=== PATIENT | male | born 1955 | race Caucasian/White ===

== ENCOUNTER 2023-04-17 20:28 | Inpatient (IN) | payer MEDICARE, SELFPAY ==
[2023-04-17] VITALS (15 sets, daily range): BP systolic 125–155; BP diastolic 86–99; PULSE 39–49; RESP 10–23; TEMP 37.1; O2SAT 94–97; BMI 19.6
--- NOTE | 2023-04-17 20:36 | XRR_ITS ---
PROCEDURE INFORMATION: Exam: XR Chest Exam date and time: 04/17/2023 9:15 PM Age: 67 years old Clinical indication: Other: AMS TECHNIQUE: Imaging protocol: Radiologic exam of the chest. Views: 1 view. COMPARISON: No relevant prior studies available. FINDINGS: Lungs: Unremarkable. No consolidation. Pleural spaces: Unremarkable. No pleural effusion. No pneumothorax. Heart/Mediastinum: The heart size is mildly enlarged. Vasculature: The aorta is markedly tortuous possibly aneurysmal dilated. Bones/joints: Unremarkable. XR/XR chest 1V portable [id number] IMPRESSION: The aorta is markedly tortuous and likely aneurysmal dilated. Recommend CTA chest aorta protocol for further assessment.
--- NOTE | 2023-04-17 20:36 | ECG_ITS ---
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 Measurements Intervals [place] Rate: 44 P: 40 NE: 192 QRS: -11 QRSD: 118 T: 119 QT: 496 QTc: 428 Interpretive Statements SINUS BRADYCARDIA MODERATE INTRAVENTRICULAR CONDUCTION DELAY [110+ ms QRS DURATION] NONSPECIFIC T-WAVE ABNORMALITY INTERPRETATION BASED ON A DEFAULT AGE OF 40 YEARS No previous ECG available for comparison Electronically Signed On 04-18-2023 15:47:51 CDT by Sathya Diaz M.D. [id number]
--- NOTE | 2023-04-17 20:43 | CTR_ITS ---
PROCEDURE INFORMATION: Exam: CT Head Without Contrast Exam date and time: 04/17/2023 9:23 PM Age: 67 years old Clinical indication: Altered mental status/memory loss; Patient HX: Arrivial via EMS for severe lethargy. Bradycardic on monitor. Unbale to obtain further history. ; Additional info: AMS TECHNIQUE: Imaging protocol: Computed tomography of the head without contrast. Radiation optimization: All CT scans at this facility use at least one of these dose optimization techniques: automated exposure control; mA and/or kV adjustment per patient size (includes targeted exams where dose is matched to clinical indication); or iterative reconstruction. REPORTING DATA: Count of CT and Cardiac NM exams in prior 12 months: This patient has received 0 known CTs and 0 known cardiac nuclear medicine studies in the 12 months prior to the current study. COMPARISON: No relevant prior studies available. RADIATION DOSE METRICS: Total DLP (mGy-cm): 1081.98 FINDINGS: Brain: No acute infarct. No hemorrhage. Involutional changes of the brain, commensurate with age. No mass effect. Chronic large region of encephalomalacia is seen in the left occipital lobe within the REGISTERED NURSING PROFESSOR territory. 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 Cerebral ventricles: No ventriculomegaly. Paranasal sinuses: No significant inflammation. No fluid levels. Mastoid air cells: Visualized mastoid air cells are well aerated. Bones/joints: Unremarkable. No acute fracture. Soft tissues: Unremarkable. CT/CT head wo con* [id number] IMPRESSION: No acute intracranial abnormality.
[2023-04-17 20:44] LABS: Glucose Point of Care 103 mg/dL (70-110)
--- NOTE | 2023-04-17 20:44 | ED_ITS ---
HPI - Syncope General: Chief Complaint: Syncope Stated Complaint: Unresponsive Time Seen by Provider: 04/17/23 20:35 Limitations: altered mental status History of Present Illness: Patient presents to the ER with unresponsiveness and altered mental status. Patient was placed down for a nap approximately at 1500. His family tried to wake patient approximately 2000. And was under his able to wake patient patient was unresponsive at this time. Patient's family said his vital signs was normal except his heart rate was in the 40s. Patient does have a history of severe dementia and is progressively rapidly went downhill over the last month. Patient just recently moved here from [place] 2 days ago to be here with his family. His and daughter in the room and are the primary historians. Patient is nonverbal and will not follow commands at this time. Review of Systems General: Reports: ROS unobtainable due to mental status Physical Exam Const: COMMON NORMALS: no acute distress, average body habitus, healthy appearing and well nourished EXAM LIMITATIONS: behavioral limitations HENMT: COMMON NORMALS: normocephalic, atraumatic, external ears normal, Normal external nose present and moist oral mucous membranes HEAD & SCALP: normocephalic and atraumatic NOSE: Normal external nose present EXTERNAL EAR: Yes external ears normal Eye: COMMON NORMALS: Equal, round and reactive pupils present, EOMs intact bilaterally, conjunctivae normal and no scleral icterus CONJUNCTIVA: Yes conjunctivae normal PUPIL: Yes Equal, round and reactive pupils present Neck/C-Spine: COMMON NORMALS: no JVD Resp: COMMON NORMALS: normal respiratory effort, No retractions, No use of accessory muscles and clear to auscultation bilaterally AUSCULTATION: clear to auscultation bilaterally Cardio: COMMON NORMALS: no JVD, S1 normal heart sound present, S2 normal heart sound present, No gallops present (Cardio), No clicks present (Cardio) and No murmurs present (Cardio) RATE: bradycardic HEART SOUNDS: S1 normal heart sound present and S2 normal heart sound present GI: COMMON NORMALS: Normal to inspection, nondistended, normoactive bowel sounds present, Soft to palpation, non-tender, No hepatosplenomegaly present and no masses PALPATION: Yes Soft to palpation and Yes No hepatosplenomegaly present : COMMON NORMALS: Yes no CVA tenderness BLADDER/KIDNEY EXAM: Yes no CVA tenderness Back/Pelvis: COMMON NORMALS: no CVA tenderness Extremity: NARRATIVE EXTREMITY EXAM: Negative edema to bilateral lower extremities Course Vital Signs: Vital signs: Vital Signs Temperature 98.7 F 04/17/23 20:29 Pulse Rate 43 L 04/17/23 22:00 Respiratory Rate 16 04/17/23 22:00 Blood Pressure 135/92 04/17/23 22:00 Pulse Oximetry 95 04/17/23 22:00 Oxygen Delivery Me thod Room Air 04/17/23 20:29 MDM - Syncope Medical Decision Making Presents to the ER with complaints of unresponsiveness and altered mental status. Patient would not respond to family after he woke up from a nap today. Patient arrived at the ER he was only responsive to stiff sternal rub. Lab work was obtained chest x-ray showed a markedly tortuous likely aneurysmal dilated aorta. CTA was obtained preliminary review was negative for dissection. Lab work showed patient was probably a little dehydrated with a sodium of 149, but hypokalemic with a potassium of 2.9, BUN/creatinine of 11 and 0.6. And magnesium 1.8. Patient was given 20 mEq of potassium as of K riders and 40 mEq potassium p.o. and 2 g magnesium IV. Patient was discussed with Dr. Nevarez who agreed for further evaluation and treatment as admission we will wait to to get the official report of the CTA for the tortuous aorta. Differential Diagnosis Unlikely syncope due to orthostatic hypotension, vasovagal syncope, complete atrioventricular block, subarachnoid hemorrhage, pulmonary embolism or dehydration Medical Records I reviewed the patient's medical records. Lab Data I reviewed the patient's lab results. 04/17/23 20:34 04/17/23 20:34 Radiology Impressions Chest X-Ray 04/17/23 20:36 IMPRESSION: The aorta is markedly tortuous and likely aneurysmal dilated. Recommend CTA chest aorta protocol for further assessment. ADDENDUM: 04/17/233 THIS REPORT CONTAINS FINDINGS THAT MAY BE CRITICAL TO PATIENT CARE. The findings were verbally communicated via telephone conference with Mayco Hawk at 10:05 PM CDT on 04/17/2023. The findings were acknowledged and understood. Head CT 04/17/23 20:43 IMPRESSION: No acute intracranial abnormality. Laboratory Results WBC 5.9 10^3/uL (4.0-10.0) 04/17/23 20:34 RBC 3.94 10^6/uL (4.1-5.3) L 04/17/23 20:34 Hgb 12.1 g/dL (11.7-16.6) 04/17/23 20:34 Hct 38.2 % (42.0-52.0) L 04/17/23 20:34 MCV 97.0 fl (80-94) H 04/17/23 20: MCH 30.7 pg (28.0-34.0) 04/17/23 20: MCHC 31.7 g/dL (30.0-36.0) 04/17/23 20: RDW 16.7 % (12.1-15.1) H 04/17/23 20:34 Plt Count 152 10^3/cmm (130-400) 04/17/23 20:34 MPV 9.8 fL (7.4-10.4) 04/17/23:34 Neut % (Auto) 75.3 % 04/17/23:34 Lymph % (Auto) 15.8 % 04/17/23 20:34 [place]arrow % (Auto) 8.0 % 04/17/23 20:34 Eos % (Auto) 0.2 % 04/17/23 20:34 Baso % (Auto) 0.2 % 04/17/23: Neut # (Auto) 4.44 10^3/uL (1.8-7.7) 04/17/23:34 Lymph # (Auto) 0.9 10^3/uL (0.8-4.8) 04/17/23:34 [place] # (Auto) 0.5 10^3/uL (0.2-0.9) 04/17/23 20:34 Eos # (Auto) 0.0 10^3/uL (0.0-0.8) 04/17/23:34 Baso # (Auto) 0.0 10^3/uL (0.0-0.1) 04/17/23:34 Nucleated RBC % (auto) 0 % 04/17/23: Nucleated RBCs # 0.0 /100WBC 04/17/23 20: Sodium 149 mmol/L (136-145) H 04/17/23 20:34 Potassium 2.9 mmol/L (3.5-5.1) L 04/17/23 20:34 Chloride 110 mmol/L (98-107) H 04/17/23 20:34 Carbon Dioxide 32 mmol/L (22-29) H 04/17/23 20:34 Anion Gap 9.9 (5-19) 04/17/23 20:34 BUN 11 mg/dL (8-23) 04/17/23 20:34 Creatinine 0.6 mg/dL (0.7-1.2) L 04/17/23 20:34 GFR Calculation 134.4 mL/min (90-130) H 04/17/23 20:34 Glucose 92 mg/dL (65-115) 04/17/23 20:34 POC Glucose 103 mg/dL (70-110) 04/17/23 20:39 Calculated Osmolality 307 mOsm/kg (285-295) H 04/17/23 20:34 Calcium 8.5 mg/dL (8.5-10.5) 04/17/23 20:34 Magnesium 1.8 mg/dL (1.7-2.3) 04/17/23 20:34 Total Bilirubin 0.3 mg/dL (0.15-1.2) 04/17/23 20:34 AST 33 U/L (0-40) 04/17/23 20:34 ALT 51 U/L (0-41) H 04/17/23 20:34 Alkaline Phosphatase 163 U/L (40-130) H 04/17/23 20:34 Total Protein 5.6 g/dL (6.6-8.7) L 04/17/23 20:34 Albumin 2.6 g/dL (3.5-5.2) L 04/17/23 20:34 Globulin 3.0 g/dL (1.3-4.6) 04/17/23 20:34 EKG Data EKG 1: I personally reviewed and interpreted this EKG as follows: EKG interpretation date: 04/17/23 EKG interpretation time: 20:37 Prior EKG tracings: not available for review Interpretation: EKG shows ventricular rate 44 bpm, ND interval 192, QRS duration 118, QTc 448, s inus bradycardia with moderate intraventricular conduction delay, nonspecific T wave abnormalities. 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
[2023-04-17 21:00] LABS: Basophils % 0.2 %; Eosinophils % 0.2 %; Hematocrit 38.2 % (42.0-52.0); Hemoglobin 12.1 g/dL (11.7-16.6); Lymphocytes # 0.9 10^3/uL (0.8-4.8); Lymphocytes % 15.8 %; Mean Corpuscular HGB Conc 31.7 g/dL (30.0-36.0); Mean Corpuscular Hemoglobin 30.7 pg (28.0-34.0); Mean Platelet Volume 9.8 fL (7.4-10.4); Monocytes # 0.5 10^3/uL (0.2-0.9); Neutrophils # 4.44 10^3/uL (1.8-7.7); Neutrophils % 75.3 %; Nucleated Red Blood Cells % 0 %; Platelet Count 152 10^3/cmm (130-400); Red Blood Count 3.94 10^6/uL (4.1-5.3); Red Cell Distribution Width 16.7 % (12.1-15.1); White Blood Count 5.9 10^3/uL (4.0-10.0)
[2023-04-17 21:10] LABS: Alanine Aminotransferase 51 U/L (0-41); Albumin Level 2.6 g/dL (3.5-5.2); Alkaline Phosphatase 163 U/L (40-130); Aspartate Amino Transferase 33 U/L (0-40); Blood Urea Nitrogen 11 mg/dL (8-23); Calcium 8.5 mg/dL (8.5-10.5); Carbon Dioxide 32 mmol/L (22-29); Chloride 110 mmol/L (98-107); Glomerular Filtration Rate 134.4 mL/min (90-130); Glucose 92 mg/dL (65-115); Magnesium 1.8 mg/dL (1.7-2.3); Osmolality Calculated 307 mOsm/kg (285-295); Sodium 149 mmol/L (136-145); Total Bilirubin 0.3 mg/dL (0.15-1.2); Total Protein 5.6 g/dL (6.6-8.7)
[2023-04-17 21:16] LABS: Anion Gap 9.9 (5-19); Potassium 2.9 mmol/L (3.5-5.1)
[2023-04-17] MEDS: lidocaine 1% 5 ML in potassium chloride premix 100 ML 52.5 ML IV (21:46)
--- NOTE | 2023-04-17 22:07 | CTR_ITS ---
PROCEDURE INFORMATION: Exam: CTA Chest With Contrast Exam date and time: 04/17/2023 10:34 PM Age: 67 years old Clinical indication: Other: Bradycardia. Tortuous aorta. Patient HX: Persistent bradycardia with tortuous aorta noted on cxr. ; Additional info: Abnormal aorta on cxr TECHNIQUE: Imaging protocol: Computed tomographic angiography of the chest with contrast. Exam focused on the arteries. 3D rendering (Not supervised by radiologist): MIP and/or 3D reconstructed images were created by the technologist. Radiation optimization: All CT scans at this facility use at least one of these dose optimization techniques: automated exposure control; mA and/or kV adjustment per patient size (includes targeted exams where dose is matched to clinical indication); or iterative reconstruction. Contrast material: OMNI 350; Contrast volume: 100 ml; Contrast route: INTRAVENOUS (IV); REPORTING DATA: Count of CT and Cardiac NM exams in prior 12 months: This patient has received 0 known CTs and 0 known cardiac nuclear medicine studies in the 12 months prior to the current study. COMPARISON: CR (CHEST, ) 04/17/2023 9:15 PM RADIATION DOSE METRICS: Total DLP (mGy-cm): 575.3 FINDINGS: Pulmonary arteries: No central pulmonary embolus is visible. Peripheral assessment is limited. Aorta: Ascending aortic aneurysm measures 4.3 cm at the level of the right main pulmonary artery. There is ectasia of the descending aorta at the same level to 2.9 cm. No evidence of dissection. Thyroid: Bilateral subcentimeter thyroid nodules. Lungs: Right lower lobe infiltrate greatest in the superior segment. Minimal patchy infiltrate in the peripheral right upper lobe is also present. The left lung is clear. Pleural spaces: Trace right pleural effusion. Heart: Mild cardiomegaly. Postsurgical changes in the atrial septum likely related to ASD closure. Lymph nodes: Unremarkable. No enlarged lymph nodes. Liver: Pneumobilia in the left hepatic lobe post cholecystectomy. Bones/joints: Subacute appearing posteromedial right-sided rib fractures superiorly. Soft tissues: Unremarkable. CT/CT angio chest [id number] IMPRESSION: 1. Ascending aortic aneurysm measures 4.3 cm. No dissection. 2. Right lower lobe greater than right upper lobe infiltrates suspicious for pneumonia. Trace right pleural effusion. COMMENTS: Consistent with the [place] [employer]'s Incidental Findings Committee white paper (J Am Opal Radiol 2015): In patients aged 35 years and older with an incidental thyroid nodule equal to or greater than 1.[address], MRI or extrathyroidal US, further evaluation with dedicated thyroid US is recommended for patients with normal life expectancy and without comorbidities. For smaller nodules without suspicious features, no further evaluation or follow up is recommended.
[2023-04-17] MEDS: iohexol 350 mg/mL 500 mL Btl (per mL) IV (22:44)
[2023-04-17] MEDS: magnesium sulfate premix 2 GM/50 ML PIGGYBACK IV (23:29)
[2023-04-18] VITALS (67 sets, daily range): BP systolic 110–172; BP diastolic 72–113; PULSE 32–76; RESP 8–37; TEMP 36.8–36.9; O2SAT 87–100
--- NOTE | 2023-04-18 | PC.NURSE ---
Patient was given room on medsurg unit. Upon calling report, receiving nurse questioned if this was the appropriate floor. Hospitalist called to reassess.
[2023-04-18] MEDS: piperacillin-tazobactam 3.375 GM in sodium chloride 0.9% (plus) 50 ML IV (00:28)
--- NOTE | 2023-04-18 01:48 | PC.NURSE ---
Report from JOÃO Bee. Family states pt is in a brief and needs brief changed. Pt is incontinent of urine. Family and pt requested catheter for comfort at this point. Dr. Mishra notified and orders received. Clean linens provided. Pt placed in gown.
--- NOTE | 2023-04-18 01:58 | P.HP_ITS ---
Providers/Chief Complaint Admitting Physician: Paul Nevarez DO Primary Care Provider: None just moved to town 3 days ago to live with family Chief Complaint: Unresponsive History of Present Illness Daquan Villa is a 67 year old male who cannot give much history. The mark santana and grandson answer most of the questions. Patient and his are just moving to town to live with family because she is having trouble taking care of him. She states today they could not wake him after a 5-hour nap. This is new and unusual. She states that he has been very weak and unable to walk. While the history is somewhat difficult to obtain the patient required a Whipple procedure 11 years ago and states he has gone downhill from there. However, she also reports that he was running a year and a half ago. She also states that she has not had a meaningful conversation with him in approximately 3 months. He does not initiate conversations and has responds minimally to them verbally. The states that he has been diagnosed with dementia but she is unsure which kind. They also report he has had a low heart rate for many years and usually runs in the 40s. She says he has just been checked out by a attendant coin operated laundry because of his lower extremity edema and was told his heart is strong. Patient denies any chest pain shortness of breath other pain nausea or vomiting to me he denied headache and dizziness. Review of Systems Const: Denies: fever(s) or chills Eyes: Denies: change in vision ENMT: Denies: throat pain or nasal congestion Card: Denies: chest pain or palpitations Resp: Denies: dyspnea or productive cough GI: Denies: abdominal pain, nausea, vomiting or change in stool character : Denies: difficulty urinating or dysuria Musc: Denies: back pain or extremity pain Skin/Breast: Denies: rash or lesions Neuro: Denies: headache(s) or dizziness Psych: Denies: anxiety or depression Leobardo/Lymph: Denies: easy bruising or easy bleeding PFSH Acute PFSH: Medical History Asymptomatic bradycardia Bedridden Dementia Leg swelling Surgical History History of Whipple procedure Social History Smoking and tobacco status: never smoked Second hand smoke exposure: No Alcohol intake: never Substance/Drug Use: never Household members: spouse and children Housing: House Marital status: Vitals/I&O/Wt Last Vital Signs Temp 98.7 F 04/17/23 20:29 Pulse 33 L 04/18/23 01:15 Resp 16 04/18/23 01:15 BP 129/83 04/18/23 01:15 Pulse Ox 87 L 04/18/23 01:15 O2 Del Method Room Air 04/17/23 20:29 04/17/23 04/17/23 04/18/23 14:59 22:59 06:59 Intake Total Balance Weight last 48 hrs Weight 60.328 kg Physical Exam Narrative: Patient is lying in bed with and grandson at the bedside. He does not open his eyes for interaction with me initially upon exam he awakens. Patient is a elderly appearing male in no acute distress except looking chronically ill. Neurologic patient is alert and oriented to person place time and situation he is lethargic. Nonfocal and exam HEENT head is atraumatic normocephalic pupils equal round and reactive to light and accommodation extraocular muscles are intact there is no scleral mucous man membranes are somewhat dry neck is supple no JVD carotid bruits or lymphadenopathy heart is bradycardic normal S1-S2 without murmurs clicks gallops or rubs distant heart sounds though Lungs clear to auscultation without wheezes rales or rhonchi Abdomen soft nontender nondistended positive bowel sounds no hepatosplenomegaly Extremities +3 pitting edema residential up bilateral legs worse in the feet. Feet are cool to touch Skin no lesions or rashes Lymphatic: No lymphadenopathy noted in neck axilla or inguinal area Urinary Catheter Management: Hickman: Cath Placed During This Visit: yes Urinary Catheter Date of Insertion: 04/18/23 Urinary Catheter Time of Insertion: 01:57 Data 04/17/23 20:34 04/17/23 20:34 Micro: Microbiology 04/17/23 23:34 Blood Culture - Preliminary Blood SPECIMEN COLLECTED 04/17/23 23:30 Blood Culture - Preliminary Blood SPECIMEN COLLECTED CTA Chest: Radiologist's impression: IMPRESSION: 1. ? Ascending aortic aneurysm measures 4.3 cm. No dissection. 2. ? Right lower lobe greater than right upper lobe infiltrates suspicious for pneumonia. Trace right pleural effusion. CT Head: Radiologist's impression: FINDINGS: Brain: No acute infarct. No hemorrhage. Involutional changes of the brain, commensurate with age. No mass effect. Chronic large region of encephalomalacia is seen in the left occipital lobe within the RN ADVICE territory. 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 Cerebral ventricles: No ventriculomegaly. Paranasal sinuses: No significant inflammation. No fluid levels. Mastoid air cells: Visualized mastoid air cells are well aerated. Bones/joints: Unremarkable. No acute fracture. Soft tissues: Unremarkable. CT/CT head wo con* [id number] IMPRESSION: No acute intracranial abnormality. CXR: Radiologist's impression: FINDINGS: Lungs: Unremarkable. No consolidation. Pleural spaces: Unremarkable. No pleural effusion. No pneumothorax. Heart/Mediastinum: The heart size is mildly enlarged. Vasculature: The aorta is markedly tortuous possibly aneurysmal dilated. Bones/joints: Unremarkable. XR/XR chest 1V portable [id number] IMPRESSION: The aorta is markedly tortuous and likely aneurysmal dilated. Recommend CTA chest aorta protocol for further assessment. A&P Assessment and plan (1) Dementia: suspect vascular dementia Qualifiers: Dementia behavioral or psychological symptom: unspecified whether behavioral, psychotic, or mood disturbance or anxiety Dementia severity: severe Dementia type: unspecified type Qualified Code(s): F03.C0 - Unspecified dementia, severe, without behavioral disturbance, psychotic disturbance, mood disturbance, and anxiety (2) Bedridden: (3) History of Whipple procedure: (4) Leg swelling: Likely related to malnutrition and hypoalbuminemia (5) Asymptomatic bradycardia: Will place in CSU precautionary. (6) Pneumonia: Antibiotics respiratory eval and treat O2 as needed (7) Acute alteration in mental status: Likely due to infection and hypokalemia (8) Acute hypokalemia: Replace with 80 mEq total today and recheck Plan Unfortunately this is very overwhelming for patient and the family after having just moved here 3 days ago. We had a extensive conversation about CODE STATUS. I repeated myself a few times regarding quality of life. After they had a few moments to discuss and even discussed with the patient the decision was made for no tubes. Thus a DNR DNI or out natural was entered in orders. They n ever said they did not want transvenous pacer or permanent pacer at this time. Thus he will be placed in CSU Attestations Medical Necessity Statement*: Patient is acutely ill with pneumonia and altered mental status. Patient will need extensive work-up and treatment in a hospital setting. His care is expected to cross 2 midnight Coding Level of Care Code [facility] Dementia F03.C0 Dementia behavioral or psychological symptom: unspecified whether behavioral, psychotic, or mood disturbance or anxiety Dementia severity: severe Dementia type: unspecified type Bedridden Z74.01 History of Whipple procedure Z90.410; Z90.49 Leg swelling M79.89 Asymptomatic bradycardia R00.1 Pneumonia J18.9 Acute alteration in mental status R41.82 Acute hypokalemia E87.6
[2023-04-18 02:42] LABS: Glucose Urine UA Norm (Normal); Ketones Urine 1+ (Negative); Protein Urine Trace (Negative); Specific Gravity, Urine 1.015 (1.005-1.030); Urine Appearance Clear (CLEAR); Urine Color Yellow (Yellow); pH Urine 5 (5-7)
[2023-04-18 02:43] LABS: Add Urine Microscopic? YES; Bilirubin Urine Neg (Negative); Blood Urine Neg (Negative); Leukocyte Esterase Urine 1+ (Negative); Nitrate Urine Positive (Negative); Urobilinogen Urine Norm (Negative)
[2023-04-18 02:45] LABS: Add Urine Culture? Yes; Bacteria Urine 2+ /hpf; RBC Urine 0-4 /hpf (0-2); Squamous Epithelial Cell Urine 0-4 /hpf (0-5)
[2023-04-18] MEDS: sodium chloride 0.9% 1,000 ML 75 ML IV (04:34)
[2023-04-18] MEDS: potassium chloride premix 100 ML 25 MEQ IV (04:38)
[2023-04-18] MEDS: heparin 5,000 unit/mL INJ 1 mL 5000 UNIT SUBCUT ×2 (04:41→16:57)
[2023-04-18] MEDS: albumin 25 G/100 ML BAG 60 G IV (05:08)
--- NOTE | 2023-04-18 08:17 | PC.PHAR ---
Addendum entered by Tita Lawton 04/18/23 10:48: [facility] states last filled valsartan 80mg daily jun 30 2022 90d/s- [facility] states they have also filled spironolactone 50mg daily filled 02/27/23 30d/s-kcl er 10meq daily prn with lasix filled 02/24/23 30d/s-lasix 20mg daily prn filled 02/24/23 30d/s-flomax 0.4mg daily filled 12/20/22 30d/s and cymbalta 30mg 60mg daily filled 11/13/22 90d/s pts states pt only takes the valsartan Original Note: pt is from [facility]-pts states the pt is only taking one prescription medication which is valsartan and a few otc meds -pts Becky [phone] states she is unsure of the mg-rx filled at [facility] in [facility] [phone]-[facility] not open till 09:30-pts states the pt was told to take aspirin 81mg daily but the pts states she doesnt think he needs it so states the pt hasnt had for a month -pts states the pt hasnt had vit c for a month-
[2023-04-18] MEDS: cefTRIAXone 1,000 MG in sodium chloride 0.9% (plus) 50 ML 100 MG IV (09:24)
--- NOTE | 2023-04-18 09:33 | ECG_ITS ---
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 Measurements Intervals [place] Rate: 38 P: 12 OR: 150 QRS: -11 QRSD: 101 T: 169 QT: 508 QTc: 409 Interpretive Statements SINUS BRADYCARDIA NONSPECIFIC T-WAVE ABNORMALITY CRITICAL TEST RESULT Compared to ECG 04/17/2023 20:37:53 Intraventricular conduction delay no longer present T-wave abnormality still present Electronically Signed On 04-18-2023 15:53:44 CDT by Sathya Diaz M.D. [id number]
[2023-04-18 10:22] LABS: Alanine Aminotransferase 45 U/L (0-41); Albumin Level 2.8 g/dL (3.5-5.2); Alkaline Phosphatase 144 U/L (40-130); Aspartate Amino Transferase 29 U/L (0-40); Blood Urea Nitrogen 9 mg/dL (8-23); Calcium 7.8 mg/dL (8.5-10.5); Carbon Dioxide 30 mmol/L (22-29); Chloride 114 mmol/L (98-107); Globulin 2.2 g/dL (1.3-4.6); Glomerular Filtration Rate 165.9 mL/min (90-130); Glucose 78 mg/dL (65-115); Osmolality Calculated 310 mOsm/kg (285-295); Sodium 151 mmol/L (136-145); Total Bilirubin 0.3 mg/dL (0.15-1.2)
[2023-04-18 10:24] LABS: Troponin(5th) Baseline 33 ng/L (0-15)
[2023-04-18 10:34] LABS: Phosphorus 2.8 mg/dL (2.5-4.5); Thyroid Stimulating Hormone 1.49 uIU/mL (0.27-4.20)
[2023-04-18] MEDS: lidocaine 1% 5 ML in potassium chloride premix 100 ML 26.25 ML IV (10:50)
--- NOTE | 2023-04-18 11:05 | ECG_ITS ---
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 Measurements Intervals [place] Rate: 37 P: 0 ND: 0 QRS: -15 QRSD: 110 T: 127 QT: 533 QTc: 420 Interpretive Statements Sinus bradycardia with a heart rate of 37 bpm NONSPECIFIC T-WAVE ABNORMALITY CRITICAL TEST RESULT Compared to ECG 04/18/2023 09:33:05 Sinus bradycardia no longer present T-wave abnormality still present Electronically Signed On 04-18-2023 15:58:49 CDT by Sathya Diaz M.D. [id number]
--- NOTE | 2023-04-18 11:57 | P.EN_ITS ---
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, bedbound, not eating well, she does not want any pacemaker, tubes, chest compressions or intubation I have changed status to DNR/DNI, she also does not want pacemaker as well Nurse Britt was also present in the room Patient clinically looks dehydrated Arousable to verbal stimuli, okay to pain to painful stimuli Significant muscle mass loss Assessment and plan Failure to thrive Dementia UTI, pneumonia, dehydration, hypernatremia Will request physical therapy once he is more awake and alert, continue antibiotics, day 5 half-normal saline, we will try to treat reversible causes and in case he does not improve then might opt for palliative care: Bradycardia, blood pressure stable, Requested records from [facility]: kaylie
[2023-04-18 12:09] LABS: Troponin 5 2HR 32.95 ng/L (0-15)
[2023-04-18 12:10] LABS: Troponin 5 2HR Delta -0.05 ABS# (0-10)
[2023-04-18] MEDS: dextrose 5%-sod chloride 0.45% 1,000 ML 75 ML IV (12:55)
[2023-04-18] MEDS: bisacodyl 5 mg Tablet 10 MG PO (13:37)
--- NOTE | 2023-04-18 15:02 | PC.PT ---
Eval attempted but patient is lethargic and in and out of sleeping even though he was just sitting up and eating. Pt was not responding well and will attempted to be evaluated tomorrow per nursing.
--- NOTE | 2023-04-18 16:10 | ECG_ITS ---
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 Measurements Intervals [place] Rate: 42 P: 37 VA: 172 QRS: -14 QRSD: 112 T: 69 QT: 504 QTc: 424 Interpretive Statements SINUS BRADYCARDIA POSSIBLE ANTERIOR MYOCARDIAL INFARCTION , PROBABLY OLD [30 ms Q WAVE IN V3/V4, OR R < 0.2 mV IN V4] Compared to ECG 04/18/2023 10:43:49 Myocardial infarct finding now present T-wave abnormality no longer present Electronically Signed On 04-19-2023 14:51:03 CDT by Sathya Diaz M.D. [id number]
[2023-04-18 16:11] LABS: Troponin 5 6HR 29.38 ng/L (0-15)
[2023-04-18 16:28] LABS: Troponin 5 6HR Delta -3.62 ng/L (0-12)
[2023-04-18] MEDS: magnesium oxide 400 mg tablet PO (17:02)
[2023-04-19] VITALS (15 sets, daily range): BP systolic 111–164; BP diastolic 80–112; PULSE 62–115; RESP 17–46; TEMP 36.2–36.7; O2SAT 90–95
[2023-04-19] MEDS: dextrose 5%-sod chloride 0.45% 1,000 ML 75 ML IV ×2 (01:01→14:30)
[2023-04-19 02:30] LABS: Basophils % 0.3 %; Eosinophils % 0.5 %; Hematocrit 35.2 % (42.0-52.0); Hemoglobin 11.3 g/dL (11.7-16.6); Lymphocytes # 0.7 10^3/uL (0.8-4.8); Lymphocytes % 10.6 %; Mean Corpuscular HGB Conc 32.1 g/dL (30.0-36.0); Mean Corpuscular Hemoglobin 30.4 pg (28.0-34.0); Mean Corpuscular Volume 94.6 fl (80-94); Monocytes # 0.3 10^3/uL (0.2-0.9); Monocytes % 4.9 %; Neutrophils % 83.4 %; Nucleated Red Blood Cells % 0 %; Platelet Count 160 10^3/cmm (130-400); Red Blood Count 3.72 10^6/uL (4.1-5.3); Red Cell Distribution Width 16.3 % (12.1-15.1); White Blood Count 6.1 10^3/uL (4.0-10.0)
[2023-04-19 02:39] LABS: D Dimer 0.56 ug/mIFEU (0-0.59)
[2023-04-19 02:45] LABS: Anion Gap 8.3 (5-19); Blood Urea Nitrogen 9 mg/dL (8-23); Calcium 8.1 mg/dL (8.5-10.5); Carbon Dioxide 30 mmol/L (22-29); Chloride 114 mmol/L (98-107); Glomerular Filtration Rate 134.4 mL/min (90-130); Glucose 107 mg/dL (65-115); Osmolality Calculated 307 mOsm/kg (285-295); Potassium 3.3 mmol/L (3.5-5.1); Sodium 149 mmol/L (136-145)
[2023-04-19] MEDS: heparin 5,000 unit/mL INJ 1 mL 5000 UNIT SUBCUT ×2 (04:05→17:10)
[2023-04-19] MEDS: cefTRIAXone 1,000 MG in sodium chloride 0.9% (plus) 50 ML 100 MG IV (08:28)
[2023-04-19] MEDS: magnesium oxide 400 mg tablet PO ×2 (08:28→18:21)
[2023-04-19 09:46] LABS: Magnesium 1.7 mg/dL (1.7-2.3)
--- NOTE | 2023-04-19 11:23 | PM.PN ---
Subjective Subjective: As per the patient is back to his baseline He is able to make eye contact Able to follow commands Poor attention span Nonfocal neuro exam Able to move extremities Need a lot of clues to follow verbal commands Afebrile Hypokalemia, hypomagnesemia Requested PT today Vitals/I&O/Wt Last Vital Signs Temp 97.8 F 04/19/23 07:33 Pulse 64 04/19/23 07:33 Resp 25 H 04/19/23 07:33 BP 152/108 04/19/23 07:33 Pulse Ox 95 04/19/23 07:33 O2 Del Method Room Air 04/19/23 07:33 O2 Flow Rate 2 04/18/23 23:29 04/18/23 04/19/23 04/19/23 22:59 06:59 14:59 Intake Total 345 / 1273 907.5 / 2180.5 50 / 50 Output Total 1425 / 1425 1150 / 2575 1550 / 1550 Balance -1080 / -152 -242.5 / -394.5 -1500 / -1500 Weight last 48 hrs Weight 60.328 kg Physical Exam Narrative: This morning patient is able to make eye contact I do not see any focal deficits Fatigued and lethargic Able to follow verbal commands with multiple clues is stating that he is at his baseline Clinically looks dehydrated Abdomen soft Currently on room air S1, S2 Hypertensive Urinary Catheter Management: Hickman: Cath Placed During This Visit: yes Reason for Continuing Indwelling Catheter: Acute Urinary Retention or Obstruction Urinary Catheter Date of Insertion: 04/18/23 Urinary Catheter Time of Insertion: 01:57 Data 04/19/23 02:20 04/19/23 02:20 Micro: Microbiology 04/18/23 02:21 Urine Culture - Preliminary Urine,Clean Catch Gram Negative Rods 04/17/23 23:34 Blood Culture - Preliminary Blood NEGATIVE TO DATE 04/17/23 23:30 Blood Culture - Preliminary Blood NEGATIVE TO DATE A&P Assessment and plan (1) Pneumonia: (2) Dementia: Qualifiers: Dementia behavioral or psychological symptom: unspecified whether behavioral, psychotic, or mood disturbance or anxiety Dementia severity: severe Dementia type: unspecified type Qualified Code(s): F03.C0 - Unspecified dementia, severe, without behavioral disturbance, psychotic disturbance, mood disturbance, and anxiety (3) Asymptomatic bradycardia: (4) Leg swelling: (5) Bedridden: (6) History of Whipple procedure: (7) Acute hypokalemia: (8) Hypomagnesemia: (9) Constipation: Plan Metabolic encephalopathy related to UTI: Improving As per the patient is back to his baseline Poor attention span, seems like he is suffering from Lewy body dementia Request records from his [facility] Bradycardia: Improving with improvement of electrolyte imbalance asymptomatic Patient does not need a pacemaker at this point sinus bradycardia on EKG Hypokalemia: Repleted Hypomagnesemia: Repleted Hypertension: Optimize antihypertensive regimen Requested physical therapy for physical deconditioning Protein calorie malnourishment Requested dietary consultation Hyponatremia related to dehydration poor p.o. intake Continue D5 IV fluid for now Sodium improving Constipation: Added senna S Patient most likely will need rehab DVT prophylaxis on board Attestations Medical Necessity Statement*: Continue medical management Diagnoses Pneumonia J18.9 Dementia F03.C0 Dementia behavioral or psychological symptom: unspecified whether behavioral, psychotic, or mood disturbance or anxiety Dementia severity: severe Dementia type: unspecified type Asymptomatic bradycardia R00.1 Leg swelling M79.89 Bedridden Z74.01 History of Whipple procedure Z90.410; Z90.49 Acute hypokalemia E87.6 Hypomagnesemia E83.42 Constipation K59.00
[2023-04-19] MEDS: potassium chloride oral liq 20 mEq/15 mL UDC 40 MEQ PO (11:45)
[2023-04-19] MEDS: bisacodyl 5 mg Tablet 10 MG PO (11:45)
--- NOTE | 2023-04-19 12:54 | XRR_ITS ---
PROCEDURE INFORMATION: Exam: XR Chest Exam date and time: 04/19/2023 1:12 PM Age: 67 years old Clinical indication: Shortness of breath; Additional info: SOB.No history of trauma or recent surgery is provided. TECHNIQUE: Imaging protocol: Radiologic exam of the chest. 1image(s) are provided. Views: 1 view. COMPARISON: 1. CR (CHEST, ) 04/17/2023 9:[address] angio chest [id number] 04/17/2023 10:34 PM FINDINGS: Lungs: No lobar type consolidation is appreciated. There appears to be some patchy atelectasis at the right lung base similar overall. Pleural spaces: No pneumothorax or pleural effusion is appreciated. Heart/Mediastinum: The cardiomediastinal silhouette is upper normal in size.This can be seen with central averaging as well as andrea enlargement.No cardiac decompensation is appreciated. Diaphragm: The hemidiaphragms are symmetric. Bones/joints: Osseous alignment is maintained.No interval displaced fracture or dislocation is appreciated. Soft tissues: No radiopaque foreign body or subcutaneous emphysema is appreciated. There appear to be some transcutaneous pads present. Other findings: No other significant interval changes are appreciated. XR/XR chest 1V portable [id number] IMPRESSION: There is some patchy subsegmental atelectasis similar overall at the right lung base and could be seen with some minimal peribronchial inflammation corresponding to the previous description. Overall no interval lobar consolidation or cardiac decompensation is appreciated.
[2023-04-19 13:21] LABS: ABG PCO2 41.6 mmHg (35-45); ABG PH Result 7.52 (7.35-7.45); Alveolar-Arterial Oxygen Gradi 6.6 mmHg (5-10); Arterial Blood Gas Hematocrit 38.3 % (42-52); Blood Gas Allen Test Pos; Blood Gas Sample Site Radial, right; Blood Gas Sample Type Arterial; Carboxyhemoglobin 1.1 %THgb (0.4-20.1); HCO3 ABG 33.9 mmol/L (22-26); HGB O2 Sat 87.8 % (95-100); Ionized Calcium Level - ABG 1.2 mmol/L (1.1-1.4); Methemoglobin 1.4 % (0.4-1.5); Oxygen Device ROOM AIR; Oxygen Saturation ABG 89.9; PO2 ABG 46.8 mmHg (80.0-100.0); Potassium Level - ABG 3.4 mmol/L (3.5-5.0); Total Hemoglobin 12.5 g/dL (14-18)
[2023-04-19 13:38] LABS: ABG PCO2 37.6 mmHg (35-45); ABG PH Result 7.55 (7.35-7.45); Arterial Blood Gas Hematocrit 38.2 % (42-52); Blood Gas Allen Test Pos; Blood Gas Operator Identificat AMH; Blood Gas Sample Site Radial, left; Blood Gas Sample Type Arterial; Carboxyhemoglobin 0.7 %THgb (0.4-20.1); HCO3 ABG 33.1 mmol/L (22-26); HGB O2 Sat 94.7 % (95-100); Ionized Calcium Level - ABG 1.2 mmol/L (1.1-1.4); Methemoglobin 1.4 % (0.4-1.5); Oxygen Device ROOM AIR; Oxygen Saturation ABG 96.8; Potassium Level - ABG 3.5 mmol/L (3.5-5.0); Total Hemoglobin 12.5 g/dL (14-18)
--- NOTE | 2023-04-19 13:49 | ECG_ITS ---
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 Measurements Intervals [place] Rate: 104 P: 32 SC: 152 QRS: -29 QRSD: 91 T: 124 QT: 334 QTc: 440 Interpretive Statements SINUS TACHYCARDIA POSSIBLE ANTERIOR MYOCARDIAL INFARCTION , PROBABLY OLD [30 ms Q WAVE IN V3/V4, OR R < 0.2 mV IN V4] ABNORMAL RHYTHM ECG Compared to ECG 04/18/2023 16:10:48 Sinus bradycardia no longer present Myocardial infarct finding still present Electronically Signed On 04-20-2023 18:34:58 CDT by Sathya Diaz M.D. [id number]
--- NOTE | 2023-04-19 13:50 | USCV_ITS ---
Daquan Villa Age: 67 Gender: M : 1955 Exam Date: 04/19/2023 19:54 Ordering Phys: Maria T Santos MD Technologist: ALEXIA Exam Location: [facility] [place] Indication: Bradycardia BP: / HR: 103 Rhythm: Sinus Technical Quality: Very technically difficult study MEASUREMENTS (Male / Female) Normal Values 2D ECHO LV Ejection Fraction MOD 2C 67.0 % LV Ejection Fraction 2C AL 67.1 % DOPPLER AV Peak Velocity 99.0 cm/s LVOT Peak Velocity 84.0 cm/s MV Area PHT 10.0 cm squared Mitral E to A Ratio 1.4 MV E' Velocity 58.5 cm/s Mitral E to MV E' Ratio 12.2 Mitral E to LV E' Lateral Ratio 9.4 Mitral E to LV E' Septal Ratio 17.7 TV Peak E Velocity 102.0 cm/s FINDINGS Left Ventricle Normal left ventricular size, systolic function and wall thickness, with no regional wall motion abnormalities. Left ventricular ejection fraction is estimated at 65-70 %. Grade I diastolic dysfunction (abnormal relaxation filling pattern), normal to mildly elevated filling pressures. Right Ventricle Normal right ventricular size and systolic function. Right Atrium Normal right atrial size. Left Atrium Normal left atrial size. Mitral Valve Structurally normal mitral valve. No mitral valve regurgitation. Aortic Valve Aortic valve not well visualized. No aortic valve regurgitation. Tricuspid Valve Structurally normal tricuspid valve. Pulmonic Valve Pulmonic valve not well visualized. Pericardium No pericardial effusion. Aorta Aorta not well visualized. IVC Inferior vena cava not visualized. CONCLUSIONS 1. This is a technically very difficult study. Only apical images were available for review. 2. Normal left ventricular size, systolic function and wall thickness, with no regional wall motion abnormalities. Left ventricular ejection fraction is estimated at 65-70 %. 3. No prior similar studies to compare. Mary Aden MD (Electronically Signed) Final Date: 20 April 2023 10:58 S
[2023-04-19] MEDS: hyDRALAzine 20 mg/mL INJ 1 mL 5 MG IVP (14:30)
--- NOTE | 2023-04-19 15:59 | CTR_ITS ---
PROCEDURE INFORMATION: Exam: CT Abdomen And Pelvis Without Contrast Exam date and time: 04/19/2023 5:41 PM Age: 67 years old Clinical indication: Prior surgery; Surgery date: 6+ months; Surgery type: Whipple. Indwelling cath; Patient HX: History of whipple surgery. Advanced dementia. Unable to obtain further history. ; Additional info: Whipple's procedure history TECHNIQUE: Imaging protocol: Computed tomography of the abdomen and pelvis without contrast. Radiation optimization: All CT scans at this facility use at least one of these dose optimization techniques: automated exposure control; mA and/or kV adjustment per patient size (includes targeted exams where dose is matched to clinical indication); or iterative reconstruction. REPORTING DATA: Count of CT and Cardiac NM exams in prior 12 months: This patient has received 2 known CTs and 0 known cardiac nuclear medicine studies in the 12 months prior to the current study. COMPARISON: CT angio chest [id number] 04/17/2023 10:34 PM RADIATION DOSE METRICS: Total DLP (mGy-cm): 543.35 FINDINGS: Pleural spaces: Bilateral pleural effusions with adjacent compressive atelectasis or pneumonia. There are patchy infiltrates at the right lung base. Heart: Prosthetic heart valve. Liver: Normal. No mass. Gallbladder and bile ducts: Gallbladder not visualized. Pancreas: Normal. No ductal dilation. Spleen: Normal. No splenomegaly. Adrenal glands: Normal. No mass. Kidneys and ureters: Normal. No hydronephrosis. Stomach and bowel: Colonic constipation is present. There is gastric mucosal thickening. Proximal duodenum is dilated. There are air-fluid levels in multiple small bowel loops some of which are dilated. Distal large bowel is of normal caliber. Appendix: No evidence of appendicitis. Intraperitoneal space: Unremarkable. No free air. No significant fluid collection. Vasculature: There is scattered atherosclerotic plaque in the aorta and iliac arteries. Lymph nodes: Unremarkable. No enlarged lymph nodes. Urinary bladder: There is a Hickman catheter and air in the bladder. Reproductive: Unremarkable as visualized. Bones/joints: Generalized osteopenia Soft tissues: There is edema in the soft tissues. Other findings: Postoperative Whipple changes. CT/CT abdomen pelvis wo con [id number] IMPRESSION: 1. There are patchy infiltrates at the right lung base consistent with pneumonia. Bilateral pleural effusions with adjacent compressive atelectasis or pneumonia. 2. Colonic constipation is present. 3. Findings as stated above are consistent with a distal small-bowel obstruction. 4. There is gastric mucosal thickening. Differential includes nonspecific gastritis. Follow-up to exclude neoplasm as clinically warranted.
[2023-04-19] MEDS: hyDRALAzine 20 mg/mL INJ 1 mL 10 MG IVP (17:09)
[2023-04-19] MEDS: amlodipine 10 mg Tablet PO (18:21)
[2023-04-19] MEDS: sennosides-docusate Tablet 1 TAB PO (18:21)
--- NOTE | 2023-04-19 20:30 | PC.NURSE ---
Procedure explained to patient and . Positioned patient, started enema infusion. Stopped three times when patient began to leak enema solution. Patient began to have bowel movement before enema was completely infused. Patient had a large formed but soft brown bowel movement. Patient tolerated procedure well. Patient hygiene performed and positioned for comfort.
--- NOTE | 2023-04-19 22:37 | PC.NURSE ---
Results from enema was very large estimate 500mL to 600mL loose, brown stool. Patient hygiene performed. Positioned patient for comfort.
[2023-04-20] VITALS (56 sets, daily range): BP systolic 93–128; BP diastolic 66–93; PULSE 49–102; RESP 16–49; TEMP 35.7–36.2; O2SAT 91–96
--- NOTE | 2023-04-20 00:01 | PC.NURSE ---
of patient declined NG tube at this time.
[2023-04-20] MEDS: heparin 5,000 unit/mL INJ 1 mL 5000 UNIT SUBCUT ×2 (04:01→17:20)
[2023-04-20] MEDS: dextrose 5%-sod chloride 0.45% 1,000 ML 75 ML IV ×2 (04:02→20:07)
[2023-04-20 04:46] LABS: Basophils % 0.1 %; Hematocrit 36.6 % (42.0-52.0); Hemoglobin 11.8 g/dL (11.7-16.6); Lymphocytes # 0.8 10^3/uL (0.8-4.8); Lymphocytes % 9.5 %; Mean Corpuscular HGB Conc 32.2 g/dL (30.0-36.0); Mean Corpuscular Hemoglobin 30.1 pg (28.0-34.0); Mean Corpuscular Volume 93.4 fl (80-94); Mean Platelet Volume 9.8 fL (7.4-10.4); Monocytes # 0.4 10^3/uL (0.2-0.9); Monocytes % 4.5 %; Neutrophils # 7.26 10^3/uL (1.8-7.7); Neutrophils % 85.5 %; Nucleated Red Blood Cells % 0 %; Platelet Count 145 10^3/cmm (130-400); Red Blood Count 3.92 10^6/uL (4.1-5.3); Red Cell Distribution Width 16.8 % (12.1-15.1); White Blood Count 8.5 10^3/uL (4.0-10.0)
[2023-04-20 05:05] LABS: Blood Urea Nitrogen 6 mg/dL (8-23); Calcium 8.2 mg/dL (8.5-10.5); Carbon Dioxide 30 mmol/L (22-29); Chloride 109 mmol/L (98-107); Glomerular Filtration Rate 165.9 mL/min (90-130); Glucose 107 mg/dL (65-115); Magnesium 1.7 mg/dL (1.7-2.3); Osmolality Calculated 302 mOsm/kg (285-295); Sodium 147 mmol/L (136-145)
--- NOTE | 2023-04-20 07:00 | MR_ITS ---
WS: [id number] MRI BRAIN WITHOUT CONTRAST HISTORY: Weakness. COMPARISON: None available. TECHNIQUE: Diffusion imaging, multiplanar T1, T2 and FLAIR imaging obtained. Numerous sequences throughout this examination are degraded significantly by motion artifact. Diffusion-weighted imaging is normal. No acute infarct. The extent of the white matter disease is dif ficult to determine with this amount of motion. There is a prior infarct in the LEFT occipital lobe. Additional areas of small vessel ischemic disease. Advanced. Prior lacunar infarct LEFT cerebellum. V entricles and extra-axial spaces are normal. No inferior displacement of cerebellar tonsils. Dural venous sinuses and flow voids cannot be well assessed on this exam due to the motion. Paranasal sinuses: Clear. Mastoid air cells: Severely limited evaluation. Calvarium and scalp: Limited evaluation. MR/MR head wo con* [id number] IMPRESSION: 1. No acute infarct identified. Diffusion imaging is negative. 2. This study is significantly degraded by motion artifact on all sequences. 3. Remote LEFT occipital lobe infarct. 4. The extent of the small vessel ischemic disease and prior infarcts is other sanchez very difficult to determine with this amount of motion. There is a tiny la cunar infarct in the LEFT cerebellum. 5. Recommendation: Follow-up MRI brain, noncontrast may be helpful eventually if the patient is able to remain still.
[2023-04-20] MEDS: cefTRIAXone 1,000 MG in sodium chloride 0.9% (plus) 50 ML 100 MG IV (08:58)
[2023-04-20] MEDS: magnesium oxide 400 mg tablet PO ×2 (08:58→17:21)
[2023-04-20] MEDS: amlodipine 10 mg Tablet PO (08:58)
[2023-04-20] MEDS: magnesium hydroxide 30 mL UDC 15 ML PO (09:24)
--- NOTE | 2023-04-20 09:58 | PM.PN ---
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 & social 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 I did tell the family that in case he is not able to eat because of his underlying dementia then prognosis will stay poor Patient remains tachypneic because of small bowel obstruction however he is able to protect airway ABG did not show any decompensation Hypernatremia improving, I will give patient potassium I have sent myasthenia gravis antibodies as well Urine showing gram-negative patrick Bradycardia has improved concern for sick sinus syndrome patient does not want pacemaker he is DNR/DNI Vitals/I&O/Wt Last Vital Signs Temp 96.8 F L 04/20/23 09:01 Pulse 82 04/20/23 08:00 Resp 28 H 04/20/23 08:00 BP 114/87 04/20/23 08:00 Pulse Ox 95 04/20/23 08:00 O2 Del Method Room Air 04/20/23 08:00 O2 Flow Rate 2 04/18/23 23:29 04/19/23 04/20/23 04/20/23 22:59 06:59 14:59 Intake Total 1000 / 2290 Output Total 1050 / 2600 1300 / 3900 Balance -1050 / -1310 -300 / -1610 Physical Exam Narrative: Patient is laying supine Able to answer simple questions Heart rate normal Normotensive Currently on room air Tachypnea No acute/apparent respiratory distress Bilateral breath sounds without rhonchi or crackles Muscle mass loss Abdomen is nontender nondistended bowel sounds sluggish Nonfocal neuro exam Poor concentration with poor attention span Need a lot of verbal clues Urinary Catheter Management: Hickman: Cath Placed During This Visit: yes Reason for Continuing Indwelling Catheter: Accurate Measurement of Urinary Output in Critically Ill Patients Urinary Catheter Date of Insertion: 04/18/23 Urinary Catheter Time of Insertion: 01:57 Data 04/20/23 04:26 04/20/23 04:26 Micro: Microbiology 04/18/23 02:21 Urine Culture - Preliminary Urine,Clean Catch Gram Negative Rods A&P Assessment and plan (1) Constipation: (2) Hypomagnesemia: (3) SBO (small bowel obstruction): (4) Pneumonia: (5) Dementia: Qualifiers: Dementia behavioral or psychological symptom: unspecified whether behavioral, psychotic, or mood disturbance or anxiety Dementia severity: severe Dementia type: unspecified type Qualified Code(s): F03.C0 - Unspecified dementia, severe, without behavioral disturbance, psychotic disturbance, mood disturbance, and anxiety (6) SSS (sick sinus syndrome): (7) Bedridden: (8) History of Whipple procedure: (9) Acute alteration in mental status: (10) Acute hypokalemia: (11) UTI (urinary tract infection): (12) Hypernatremia: Plan Metabolic encephalopathy related to UTI pneumonia Currently on antibiotics, gradually improving Urine culture showing gram-negative patrick patient has been afebrile no leukocytosis Fatigue lethargy lack of motivation to eat, anorexia, muscle mass loss Podiatry consulted Clear liquid diet trial, if patient fails trial then we will start PPN Lacunar infarct, stroke related dementia, cerebellar stroke MRI head completed today Patient lacks motivation to eat that would make his prognosis even worse I have sent myasthenia gravis antibodies Right lower lobe pneumonia continue antibiotics Currently on room air ABG did not show decompensation Requested sniff test Hypertension: Blood pressure is normal today he can get IV hydralazine if needed Small bowel obstruction: Fecal constipation Patient had a bowel movement with enema Clear liquid trial today In case he vomits then will place NG tube Abdomen is nontender Hyponatremia related to dehydration: Continue D5 half-normal saline DVT prophylaxis heparin No signs of PE [facility] Faxed at the time of admission DNR/DNI Most likely patient will need rehab/nursing placed Attestations Medical Necessity Statement*: Continue medical management Diagnoses Constipation K59.00 Hypomagnesemia E83.42 SBO (small bowel obstruction) K56.609 Pneumonia J18.9 Dementia F03.C0 Dementia behavioral or psychological symptom: unspecified whether behavioral, psychotic, or mood disturbance or anxiety Dementia severity: severe Dementia type: unspecified type SSS (sick sinus syndrome) I49.5 Bedridden Z74.01 History of Whipple procedure Z90.410; Z90.49 Acute alteration in mental status R41.82 Acute hypokalemia E87.6 UTI (urinary tract infection) N39.0 Hypernatremia E87.0
[2023-04-20] MEDS: lidocaine 1% 5 ML in potassium chloride premix 100 ML 26.25 ML IV (10:49)
--- NOTE | 2023-04-20 11:06 | PC.NUTR ---
Consult for PPN received if CL trial fails. If medically necessary, recommend PPN to include fat emulsion 20% 20 grams/100 mls and MV 10 mls/day - with following taper. Begin PPN @ 21 mls/hr for 8 hours (25% final infusion rate) 42 mls/hr for 8 hours (50% final infusion rate) 62 mls/hr for 8 hours (75% final infusion rate) 83 mls/hr which is goal rate. Details in RD assessment.
[2023-04-20] MEDS: Fleet Enema 133 mL Enema PR (11:16)
--- NOTE | 2023-04-20 11:49 | PC.SOCIAL ---
Pg 2 IMM Explained to pt's Pg 2 IMM. No questions voiced. Provided pt a copy. Initialed, dated, & timed a copy & placed in chart.
[2023-04-21] VITALS (10 sets, daily range): BP systolic 107–143; BP diastolic 77–90; PULSE 48–99; RESP 21–29; TEMP 35.1–36.4; O2SAT 91–94
[2023-04-21 00:25] LABS: Glucose Point of Care 97 mg/dL (70-110)
[2023-04-21] MEDS: heparin 5,000 unit/mL INJ 1 mL 5000 UNIT SUBCUT ×2 (03:06→17:20)
[2023-04-21 06:20] LABS: Basophils % 0.3 %; Eosinophils % 0.8 %; Hematocrit 37.2 % (42.0-52.0); Hemoglobin 11.9 g/dL (11.7-16.6); Lymphocytes # 0.9 10^3/uL (0.8-4.8); Lymphocytes % 22.9 %; Mean Corpuscular Hemoglobin 30.3 pg (28.0-34.0); Mean Corpuscular Volume 94.7 fl (80-94); Mean Platelet Volume 9.8 fL (7.4-10.4); Monocytes # 0.2 10^3/uL (0.2-0.9); Monocytes % 5.9 %; Neutrophils # 2.62 10^3/uL (1.8-7.7); Neutrophils % 69.6 %; Nucleated Red Blood Cells % 0 %; Platelet Count 155 10^3/cmm (130-400); Red Blood Count 3.93 10^6/uL (4.1-5.3); Red Cell Distribution Width 16.9 % (12.1-15.1); White Blood Count 3.8 10^3/uL (4.0-10.0)
[2023-04-21 06:41] LABS: Alanine Aminotransferase 38 U/L (0-41); Albumin Level 2.7 g/dL (3.5-5.2); Alkaline Phosphatase 154 U/L (40-130); Anion Gap 7.7 (5-19); Aspartate Amino Transferase 24 U/L (0-40); Blood Urea Nitrogen 8 mg/dL (8-23); Calcium 8.8 mg/dL (8.5-10.5); Carbon Dioxide 31 mmol/L (22-29); Chloride 110 mmol/L (98-107); Globulin 2.8 g/dL (1.3-4.6); Glomerular Filtration Rate 165.9 mL/min (90-130); Glucose 94 mg/dL (65-115); Osmolality Calculated 298 mOsm/kg (285-295); Potassium 3.7 mmol/L (3.5-5.1); Sodium 145 mmol/L (136-145); Total Bilirubin 0.5 mg/dL (0.15-1.2); Total Protein 5.5 g/dL (6.6-8.7)
--- NOTE | 2023-04-21 07:33 | PC.NURSE ---
late entry, difficulty getting temperature orally or axillary, rectal temp at 2314 was 96.3, placed warm blankets on patient, rectal temp at 0500 95.1, notified Dr López, patient placed on austin hugger, rectal temp probe placed and hooked up to monitor, continue to monitor
[2023-04-21] MEDS: magnesium oxide 400 mg tablet PO ×2 (09:18→17:20)
[2023-04-21] MEDS: amlodipine 10 mg Tablet PO (09:18)
[2023-04-21] MEDS: cefTRIAXone 1,000 MG in sodium chloride 0.9% (plus) 50 ML 100 MG IV (09:18)
--- NOTE | 2023-04-21 10:03 | PC.NURSE ---
Dr. Santos wanted her dextrose 5% 0.45% NS stopped. These fluids were stopped at 0910.
--- NOTE | 2023-04-21 10:29 | PM.PN ---
Subjective Subjective: Had a bowel movement yesterday, tolerating clear liquid, remove Hickman catheter, requested PT can Advance diet Nurse notified Patient should work with PT on daily basis Family wants to take him home with home health services, social media project manager notified Vitals/I&O/Wt Last Vital Signs Temp 96.3 F L 04/21/23 07:45 Pulse 71 04/21/23 07:45 Resp 22 H 04/21/23 07:45 BP 115/77 04/21/23 07:45 Pulse Ox 93 04/21/23 07:45 O2 Del Method Room Air 04/21/23 07:45 O2 Flow Rate 2 04/18/23 23:29 04/20/23 04/21/23 04/21/23 22:59 06:59 14:59 Intake Total 1080 / 1235 978.75 / 978.75 Output Total 1125 / 1125 800 / 1925 400 / 400 Balance -45 / 110 -800 / -690 578.75 / 578.75 Physical Exam Narrative: Abdomen soft Patient is smiling during my interaction No active complaints GCS 15 Nonfocal neuro exam at the bedside Afebrile Currently on room air Bowel sound present Urinary Catheter Management: Hickman: Cath Placed During This Visit: yes Reason for Continuing Indwelling Catheter: Accurate Measurement of Urinary Output in Critically Ill Patients Urinary Catheter Date of Insertion: 04/18/23 Urinary Catheter Time of Insertion: 01:57 Data 04/21/23 05:54 04/21/23 05:46 Micro: Microbiology 04/18/23 02:21 Urine Culture - Final Urine,Clean Catch Escherichia coli A&P Assessment and plan (1) Hypernatremia: (2) UTI (urinary tract infection): (3) SSS (sick sinus syndrome): (4) SBO (small bowel obstruction): (5) Constipation: (6) Hypomagnesemia: (7) Pneumonia: (8) Dementia: Qualifiers: Dementia behavioral or psychological symptom: unspecified whether behavioral, psychotic, or mood disturbance or anxiety Dementia severity: severe Dementia type: unspecified type Qualified Code(s): F03.C0 - Unspecified dementia, severe, without behavioral disturbance, psychotic disturbance, mood disturbance, and anxiety (9) Asymptomatic bradycardia: (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: (11) Acute hypokalemia: (12) Acute alteration in mental status: Plan Dehydration related hypernatremia: Resolved Lewy body dementia: MRI showed lacunar infarct cerebellar area That would explain his ataxia recurrent falls Patient to work with PT on daily basis Family wants to take him home with home health UTI: Pneumonia: Change antibiotics to levofloxacin and Augmentin Continue IV antibiotics Electrolyte imbalance: Resolved Protein calorie malnourishment albumin 2.7, Hemodynamically stable Preserved ejection fraction without acute heart failure exacerbation Constipation: Patient is having bowel movement every day we will give 1 dose of lactulose today Advance diet to full liquids Partial bowel obstruction no active nausea vomiting, advancing diet, patient is having bowel movement on daily basis Bowel sounds present Aspiration pneumonia is cleared antibiotics to p.o. regimen Gastritis: Continue Protonix DNR/DNI, heart rate is normal range, no need of pacemaker, family and patient does not want pacemaker placement even if it is indicated for sick sinus syndrome3 Discontinue IV fluids, remove Hickman catheter, Attestations Medical Necessity Statement*: Discharge tomorrow with home health Diagnoses Hypernatremia E87.0 UTI (urinary tract infection) N39.0 SSS (sick sinus syndrome) I49.5 SBO (small bowel obstruction) K56.609 Constipation K59.00 Hypomagnesemia E83.42 Pneumonia J18.9 Dementia F03.C0 Dementia behavioral or psychological symptom: unspecified whether behavioral, psychotic, or mood disturbance or anxiety Dementia severity: severe Dementia type: unspecified type Asymptomatic bradycardia R00.1 History of Whipple procedure Z90.410; Z90.49 Acute hypokalemia E87.6 Acute alteration in mental status R41.82
[2023-04-21] MEDS: potassium chloride oral liq 20 mEq/15 mL UDC 40 MEQ PO (11:23)
[2023-04-21] MEDS: lactulose oral liq 20 gm/30 mL UDC 10 GM PO (11:28)
[2023-04-21 11:40] LABS: Glucose Point of Care 149 mg/dL (70-110)
[2023-04-21 16:35] LABS: Glucose Point of Care 108 mg/dL (70-110)
[2023-04-21] MEDS: amoxicillin-clav 875-125 mg Tablet 1 TAB PO (17:20)
[2023-04-21 20:56] LABS: Glucose Point of Care 119 mg/dL (70-110)
[2023-04-22] VITALS (8 sets, daily range): BP systolic 108–134; BP diastolic 79–99; PULSE 53–87; RESP 17–26; TEMP 35.8–36.6; O2SAT 90–97
[2023-04-22] MEDS: heparin 5,000 unit/mL INJ 1 mL 5000 UNIT SUBCUT (03:39)
[2023-04-22 04:21] LABS: Basophils % 0.3 %; Eosinophils % 0.8 %; Hematocrit 35.7 % (42.0-52.0); Hemoglobin 11.5 g/dL (11.7-16.6); Lymphocytes # 0.8 10^3/uL (0.8-4.8); Lymphocytes % 23.4 %; Mean Corpuscular HGB Conc 32.2 g/dL (30.0-36.0); Mean Corpuscular Hemoglobin 31.3 pg (28.0-34.0); Mean Corpuscular Volume 97.3 fl (80-94); Mean Platelet Volume 10.1 fL (7.4-10.4); Monocytes # 0.3 10^3/uL (0.2-0.9); Monocytes % 9.6 %; Neutrophils % 65.1 %; Nucleated Red Blood Cells % 0 %; Platelet Count 146 10^3/cmm (130-400); Red Blood Count 3.67 10^6/uL (4.1-5.3); Red Cell Distribution Width 16.8 % (12.1-15.1); White Blood Count 3.5 10^3/uL (4.0-10.0)
[2023-04-22 04:37] LABS: Anion Gap 8.4 (5-19); Blood Urea Nitrogen 7 mg/dL (8-23); Calcium 8.3 mg/dL (8.5-10.5); Carbon Dioxide 29 mmol/L (22-29); Chloride 111 mmol/L (98-107); Glomerular Filtration Rate 165.9 mL/min (90-130); Glucose 80 mg/dL (65-115); Osmolality Calculated 297 mOsm/kg (285-295); Potassium 3.4 mmol/L (3.5-5.1); Sodium 145 mmol/L (136-145)
[2023-04-22] MEDS: magnesium oxide 400 mg tablet PO (08:34)
[2023-04-22] MEDS: amoxicillin-clav 875-125 mg Tablet 1 TAB PO (08:34)
[2023-04-22] MEDS: sennosides-docusate Tablet 1 TAB PO (08:34)
--- NOTE | 2023-04-22 11:00 | PC.SOCIAL ---
IMM Updated Updated pt's on IMM. No questions voiced. Provided pt a copy. Initialed, dated, & timed copy in chart.
--- NOTE | 2023-04-22 11:33 | PM.PN ---
Subjective Subjective: Patient is tolerating diet No nausea or vomiting, advance diet to GI soft No active signs obstruction at the bedside PT also working with the patient Patient has significant ataxia, It was very hard for him to participate with PT, he probably requires 2-3 person assist for ambulation is also scared that she wont be able to take care of him at home they do not have enough help in with home health he might not get PT on daily basis, I requested social worker assistant to look into other options if he could find group home placement with minimal co-pay I have not received records from outside facility, fax was sent at the time of admission, I have requested CSU coordinator to look into that as well Vitals/I&O/Wt Last Vital Signs Temp 97.9 F 04/22/23 11:27 Pulse 67 04/22/23 11:27 Resp 19 H 04/22/23 11:27 BP 108/79 04/22/23 11:27 Pulse Ox 93 04/22/23 11:27 O2 Del Method Room Air 04/22/23 11:27 O2 Flow Rate 2 04/18/23 23:29 04/21/23 04/22/23 04/22/23 22:59 06:59 14:59 Intake Total 141.25 / 1290.00 Balance 141.25 / 890.00 Physical Exam Narrative: Truncal ataxia Significant ataxia Skin sloughed off left scapular area Abdomen soft Able to follow simple commands however very short attention span Oriented to himself S1, S2 Currently on room air No signs of edema of legs or ankles I do not see any focal deficits Urinary Catheter Management: Hickman: Cath Placed During This Visit: yes, but has since been removed by the nurse Reason for Continuing Indwelling Catheter: Accurate Measurement of Urinary Output in Critically Ill Patients Urinary Catheter Date of Insertion: 04/18/23 Urinary Catheter Time of Insertion: 01:57 Date Urinary Catheter Removed: 04/21/23 Time Urinary Catheter Discontinued: 15:35 Data 04/22/23 03:13 04/22/23 03:13 A&P Assessment and plan (1) Hypernatremia: (2) UTI (urinary tract infection): (3) SSS (sick sinus syndrome): (4) SBO (small bowel obstruction): (5) Constipation: (6) Hypomagnesemia: (7) Pneumonia: (8) Dementia: Qualifiers: Dementia behavioral or psychological symptom: unspecified whether behavioral, psychotic, or mood disturbance or anxiety Dementia severity: severe Dementia type: unspecified type Qualified Code(s): F03.C0 - Unspecified dementia, severe, without behavioral disturbance, psychotic disturbance, mood disturbance, and anxiety (9) Asymptomatic bradycardia: (10) Leg swelling: (11) Bedridden: (12) History of Whipple procedure: (13) Acute alteration in mental status: (14) Acute hypokalemia: Plan Hypernatremia related to dehydration, IV fluids discontinued 04/21 Sodium 145 Advance diet to GI soft Partial bowel obstruction: Patient had 2 bowel movements in the last 36 hours, tolerating diet, advance diet today No need to PPN Lewy body dementia: MRI showed cerebellar infarct Patient has significant ataxia Work with PT I think at this point home health might be a bit riskier because he will need a lot of help he does have truncal ataxia Records requested from outside facility, I requested CSU store clerk to look into that as well Considering significant weakness I have requested acetylcholine antibodies but my suspicion for myasthenia is low I have discontinued sniff test as well Metabolic encephalopathy related to hyponatremia, UTI and pneumonia IV antibiotics de-escalated to p.o. regimen on 04/21 Afebrile Preserved ejection fraction without acute exacerbation, I do not see any leg or ankle swelling Constipation: Resolved patient required 2 enemas Significant stool burden on CT abdomen pelvis Gastritis: Continue Protonix Patient came in with bradycardia and became tachycardic later on, possibility for sick sinus syndrome? Patient and family does not want pacemaker DNR/DNI Recently moved from [place] I have requested social worker assistant to see if we can financially assist patient to go to group home, family will not be able to afford heavy co-pay Hickman catheter and IV fluids discontinued 04/21 Patient has been bedridden for last 6 to 7 months, skin sloughed off around left scapular area, requested nurse to put Allevyn dressing Attestations Medical Necessity Statement*: Awaiting placement Diagnoses Hypernatremia E87.0 UTI (urinary tract infection) N39.0 SSS (sick sinus syndrome) I49.5 SBO (small bowel obstruction) K56.609 Constipation K59.00 Hypomagnesemia E83.42 Pneumonia J18.9 Dementia F03.C0 Dementia behavioral or psychological symptom: unspecified whether behavioral, psychotic, or mood disturbance or anxiety Dementia severity: severe Dementia type: unspecified type Asymptomatic bradycardia R00.1 Leg swelling M79.89 Bedridden Z74.01 History of Whipple procedure Z90.410; Z90.49 Acute alteration in mental status R41.82 Acute hypokalemia E87.6
[2023-04-22 11:53] LABS: Glucose Point of Care 112 mg/dL (70-110)
--- NOTE | 2023-04-22 15:44 | P.DS_ITS ---
Discharge Providers Date of Admission: 04/17/23 23:38 Date of Discharge: April 22, 2023 Attending Provider at Admission: Paul Nevarez DO Attending Provider at Discharge: Maria T Santos MD Diagnoses at Discharge Discharge Diagnosis (1) Hypernatremia: Status: Acute (2) UTI (urinary tract infection): Status: Acute (3) SSS (sick sinus syndrome): Status: Acute (4) SBO (small bowel obstruction): Status: Acute (5) Constipation: Status: Acute (6) Hypomagnesemia: Status: Acute (7) Pneumonia: Status: Acute Permanent problem details: right lung (8) Dementia: Status: Acute Qualifiers: Dementia behavioral or psychological symptom: unspecified whether behavioral, psychotic, or mood disturbance or anxiety Dementia severity: severe Dementia type: unspecified type Qualified Code(s): F03.C0 - Unspecified dementia, severe, without behavioral disturbance, psychotic disturbance, mood disturbance, and anxiety (9) Asymptomatic bradycardia: Status: Acute (10) Leg swelling: Status: Acute (11) Bedridden: Status: Acute (12) History of Whipple procedure: Status: Acute (13) Acute alteration in mental status: Status: Acute (14) Acute hypokalemia: Status: Acute Reason for Visit Reason for Visit: Unresponsive Hospital Course Hospital Course 67-year male who recently moved from [place] came in for worsening of generalized weakness, patient was diagnosed with pneumonia, UTI dehydration related hypernatremia, he was started on IV fluids which improved his hyponatremia from 159 to 145 in 72 hours, MRI head showed lacunar infarct cerebellar area, patient is suffering from Lewy body dementia as per the family, he is wheelchair dependent, because of cerebellar infarct he has truncal ataxia at risk of falls, we recommended fci however patient family and daughter is wanting to take him home with home health services, completely understand that he might not do well at home he is at risk of recurrent falls but against fci placement at this point, please note, patient was bradycardic on admission with electrolyte imbalance, with replenish electrolytes his heart rate improved at times he shows sinus tachycardia, concern for sick sinus syndrome, patient and family does not want to pursue pacemaker placement patient is DNI/DNI, as per the family patient is back to his baseline, during hospitalization patient was diagnosed with partial bowel obstruction he has had 2 bowel movement so far tolerating diet no nausea vomiting refused NG tube placement. Considering multiple comorbid conditions he is high risk for readmissions. We have requested records from [facility] which are still pending. Fax was sent at the time of admission. is stating that in case of further worsening they might opt for palliative care via home health. Physical Exam Narrative: Truncal ataxia Significant ataxia Skin sloughed off left scapular area Abdomen soft Able to follow simple commands however very short attention span Oriented to himself S1, S2 Currently on room air No signs of edema of legs or ankles I do not see any focal deficits Urinary Catheter Management: Hickman: Cath Placed During This Visit: yes, but has since been removed by the nurse Reason for Continuing Indwelling Catheter: Accurate Measurement of Urinary Output in Critically Ill Patients Urinary Catheter Date of Insertion: 04/18/23 Urinary Catheter Time of Insertion: 01:57 Date Urinary Catheter Removed: 04/21/23 Time Urinary Catheter Discontinued: 15:35 Discharge Data Studies Completed and Pending Completed Studies During Hospitalization Category Date Time Status CT abdomen pelvis wo con [id number] Routine Cat Scan 04/19/23 15:[address] head wo con* [id number] Stat Cat Scan 04/17/23 20:43 Completed CTA chest [CT angio chest [id number]] Stat Cat Scan 04/17/23 22:07 Completed XR chest 1V portable [id number] Stat Exams 04/17/23 20:36 Completed XR chest 1V portable [id number] Stat Exams 04/19/23 12:54 Completed MR head wo con* [id number] Routine MRI 04/20/23 07:00 Completed CV. echo complete* [id number] Routine Ultrasound 04/19/23 13:50 Completed Pending at discharge Category Date Time Status Acetylcholine Recept Modulatin Routine Lab 04/19/23 02:20 Received Acetylcholine Receptor Binding Routine Lab 04/19/23 02:20 Received Acetylcholine Receptor Block Routine Lab 04/19/23 02:20 Received Blood Culture Stat Lab 04/17/23 23:34 Results CMP [Comprehensive Metabolic Panel] AM LABS Lab 04/23/23 04:00 Ordered Complete Blood Count w/Auto AM LABS Lab 04/23/23 04:00 Ordered Magnesium AM LABS Lab 04/23/23 04:00 Ordered Phosphorus AM LABS Lab 04/23/23 04:00 Ordered Tick Panel Routine Lab 04/22/23 12:28 Received Radiology Impressions Head CT 04/17/23 20:43 IMPRESSION: No acute intracranial abnormality. Chest CTA 04/17/23 22:07 IMPRESSION: 1. Ascending aortic aneurysm measures 4.3 cm. No dissection. 2. Right lower lobe greater than right upper lobe infiltrates suspicious for pneumonia. Trace right pleural effusion. COMMENTS: Consistent with the [employer]'s Incidental Findings Committee white paper (J Am Opal Radiol 2015): In patients aged 35 years and older with an incidental thyroid nodule equal to or greater than 1.[address], MRI or extrathyroidal US, further evaluation with dedicated thyroid US is recommended for patients with normal life expectancy and without comorbidities. For smaller nodules without suspicious features, no further evaluation or follow up is recommended. Chest X-Ray 04/19/23 12:54 IMPRESSION: There is some patchy subsegmental atelectasis similar overall at the right lung base and could be seen with some minimal peribronchial inflammation corresponding to the previous description. Overall no interval lobar consolidation or cardiac decompensation is appreciated. Abdomen/Pelvis CT 04/19/23 15:59 IMPRESSION: 1. There are patchy infiltrates at the right lung base consistent with pneumonia. Bilateral pleural effusions with adjacent compressive atelectasis or pneumonia. 2. Colonic constipation is present. 3. Findings as stated above are consistent with a distal small-bowel obstruction. 4. There is gastric mucosal thickening. Differential includes nonspecific gastritis. Follow-up to exclude neoplasm as clinically warranted. Head MRI 04/20/23 07:00 IMPRESSION: 1. No acute infarct identified. Diffusion imaging is negative. 2. This study is significantly degraded by motion artifact on all sequences. 3. Remote LEFT occipital lobe infarct. 4. The extent of the small vessel ischemic disease and prior infarcts is otherwise very difficult to determine with this amount of motion. There is a tiny lacunar infarct in the LEFT cerebellum. 5. Recommendation: Follow-up MRI brain, noncontrast may be helpful eventually if the patient is able to remain still. Laboratory Results WBC 3.5 10^3/uL (4.0-10.0) L 04/22/23 03:13 RBC 3.67 10^6/uL (4.1-5.3) L 04/22/23 03:13 Hgb 11.5 g/dL (11.7-16.6) L 04/22/23 03:13 Hct 35.7 % (42.0-52.0) L 04/22/23 03:13 MCV 97.3 fl (80-94) H 04/22/23 03:13 MCH 31.3 pg (28.0-34.0) 04/22/23 03:13 MCHC 32.2 g/dL (30.0-36.0) 04/22/23 03:13 RDW 16.8 % (12.1-15.1) H 04/22/23 03:13 Plt Count 146 10^3/cmm (130-400) 04/22/23 03:13 MPV 10.1 fL (7.4-10.4) 04/22/23 03:13 Neut % (Auto) 65.1 % 04/22/23 03:13 Lymph % (Auto) 23.4 % 04/22/23 03:13 Arroyo % (Auto) 9.6 % 04/22/23 03:13 Eos % (Auto) 0.8 % 04/22/23 03:13 Baso % (Auto) 0.3 % 04/22/23 03:13 Neut # (Auto) 2.30 10^3/uL (1.8-7.7) 04/22/23 03:13 Lymph # (Auto) 0.8 10^3/uL (0.8-4.8) 04/22/23 03:13 Arroyo # (Auto) 0.3 10^3/uL (0.2-0.9) 04/22/23 03:13 Eos # (Auto) 0.0 10^3/uL (0.0-0.8) 04/22/23 03:13 Baso # (Auto) 0.0 10^3/uL (0.0-0.1) 04/22/23 03:13 Nucleated RBC % (auto) 0 % 04/22/23 03:13 Nucleated RBCs # 0.0 /100WBC 04/22/23 03:13 D-Dimer 0.56 ug/mIFEU (0-0.59) 04/19/23 02:20 Specimen Type Arterial 04/19/23 13:27 Sample Site Radial, left 04/19/23 13:27 ABG pH 7.55 (7.35-7.45) H 04/19/23 13:27 ABG pCO2 37.6 mmHg (35-45) 04/19/23 13:27 ABG pO2 79.0 mmHg (80.0-100.0) L 04/19/23 13:27 ABG HCO3 33.1 mmol/L (22-26) H 04/19/23 13:27 ABG O2 Saturation 96.8 04/19/23 13:27 ABG Base Excess 10.0 mmol/L (-2.0-2.0) H 04/19/23 13:27 Jim Test Pos 04/19/23 13:27 A-a O2 Gradient 3.0 mmHg (5-10) L 04/19/23 13:27 Hematocrit 38.2 % (42-52) L 04/19/23 13:27 Hgb O2 Saturation 94.7 % (95-100) L 04/19/23 13:27 Carboxyhemoglobin 0.7 %THgb (0.4-20.1) 04/19/23 13:27 Methemoglobin 1.4 % (0.4-1.5) 04/19/23 13:27 Total Hemoglobin 12.5 g/dL (14-18) L 04/19/23 13:27 Sodium 150.0 mmol/L (131-143) H 04/19/23 13:27 Potassium 3.5 mmol/L (3.5-5.0) 04/19/23 13:27 Glucose 165.0 mg/dL (70-115) H 04/19/23 13:27 Ionized Calcium 1.2 mmol/L (1.1-1.4) 04/19/23 13:27 O2 Delivery Device Room air 04/19/23 13:27 FiO2 21.0 % 04/19/23 13:27 Supervisor Seaming ID Amh 04/19/23 13:27 Sodium 145 mmol/L (136-145) 04/22/23 03:13 Potassium 3.4 mmol/L (3.5-5.1) L 04/22/23 03:13 Chloride 111 mmol/L (98-107) H 04/22/23 03:13 Carbon Dioxide 29 mmol/L (22-29) 04/22/23 03:13 Anion Gap 8.4 (5-19) 04/22/23 03:13 BUN 7 mg/dL (8-23) L 04/22/23 03:13 Creatinine 0.5 mg/dL (0.7-1.2) L 04/22/23 03:13 GFR Calculation 165.9 mL/min (90-130) H 04/22/23 03:13 Glucose 80 mg/dL (65-115) 04/22/23 03:13 POC Glucose 112 mg/dL (70-110) H 04/22/23 11:38 Calculated Osmolality 297 mOsm/kg (285-295) H 04/22/23 03:13 Calcium 8.3 mg/dL (8.5-10.5) L 04/22/23 03:13 Phosphorus 2.8 mg/dL (2.5-4.5) 04/18/23 09:40 Magnesium 2.0 mg/dL (1.7-2.3) 04/21/23 05:46 Total Bilirubin 0.5 mg/dL (0.15-1.2) 04/21/23 05:46 AST 24 U/L (0-40) 04/21/23 05:46 ALT 38 U/L (0-41) 04/21/23 05:46 Alkaline Phosphatase 154 U/L (40-130) H 04/21/23 05:46 Troponin T Baseline 33 ng/L (0-15) H 04/18/23 09:40 Troponin T 120 Minute 32.95 ng/L (0-15) H 04/18/23 11:40 Delta Troponin T -0.05 ABS# (0-10) L 04/18/23 11:40 Troponin T Hi Sens 6Hr 29.38 ng/L (0-15) H 04/18/23 15:45 Troponin T Hi Sens 6Hr Delta -3.62 ng/L (0-12) L 04/18/23 15:45 Total Protein 5.5 g/dL (6.6-8.7) L 04/21/23 05:46 Albumin 2.7 g/dL (3.5-5.2) L 04/21/23 05:46 Globulin 2.8 g/dL (1.3-4.6) 04/21/23 05:46 TSH 1.49 uIU/mL (0.27-4.20) 04/18/23 09:40 Prolactin 6.70 ng/mL (4.0-15.2) 04/20/23 04:26 Urine Color Yellow (Yellow) 04/18/23 02:21 Urine Appearance Clear (CLEAR) 04/18/23 02:21 Urine pH 5 (5-7) 04/18/23 02:21 Ur Specific Mcgehee 1.015 (1.005-1.030) 04/18/23 02:21 Urine Protein Trace (Negative) 04/18/23 02:21 Urine Glucose (UA) Norm (Normal) 04/18/23 02:21 Urine Ketones 1+ (Negative) H 04/18/23 02:21 Urine Blood Neg (Negative) 04/18/23 02:21 Urine Nitrate Positive (Negative) H 04/18/23 02:21 Urine Bilirubin Neg (Negative) 04/18/23 02:21 Urine Urobilinogen Norm mg/dL (Negative) 04/18/23 02:21 Ur Leukocyte Esterase 1+ (Negative) H 04/18/23 02:21 Urine RBC 0-4 /hpf (0-2) H 04/18/23 02:21 Urine WBC 10-15 /hpf (0-5) H 04/18/23 02:21 Ur Squamous Epith Cells 0-4 /hpf (0-5) H 04/18/23 02:21 Amorphous Sediment Not Reportable 04/18/23 02:21 Urine Bacteria 2+ /hpf (NONE) H 04/18/23 02:21 Vitals Last Vital Signs Temp 97.5 F L 04/22/23 15:36 Pulse 53 L 04/22/23 15:36 Resp 17 04/22/23 15:36 BP 123/82 04/22/23 15:36 Pulse Ox 93 04/22/23 11:27 O2 Del Method Room Air 04/22/23 11:27 O2 Flow Rate 2 04/18/23 23:29 Discharge Plan Discharge Patient Disposition: Home Health Service Condition: Stable Prescriptions: New magnesium oxide 400 mg (241.3 mg magnesium) Tablet 400 mg PO BID Qty: 6 0RF amlodipine 10 mg Tablet 5 mg PO DAILY PRN (Reason: bp>130/90mmhg) Qty: 30 0RF sennosides-docusate sodium [Stool Softener-Laxative] 8.6-50 mg Tablet 1 tab PO BID Qty: 20 0RF amoxicillin-pot clavulanate 875-125 mg Tablet 1 tab PO BID Qty: 8 0RF potassium chloride 10 mEq tablet extended release 10 meq PO DAILY Qty: 4 0RF Continued valsartan 80 mg Tablet 80 mg PO DAILY Vitamin D3 25 mcg (1,000 unit) Tablet 25 mcg PO DAILY Calcium Magnesium 500 mg calcium -250 mg Tablet 1 tab PO DAILY Discharge Orders: Discharge Order (Routine); Ordered 04/22/23 Ordered By: Maria T Santos Other Ambulatory Orders: DME: Miscellaneous (Order) Location: None Selected Ordered By: Maria T Santos Referrals: [facility] [place] [Outside] [facility] Home Care ([facility]) [Outside] Mary Shaffer FNP [Nurse Practitioner] - 04/23/23 1:40 pm Discharge Diet: As Directed and Soft Mechanical Patient Instructions: Opioid Safety Discharge Attestations Time Spent in Discharge Care*: greater than 30 min Quality Metrics Clinical Quality Measures [ No reported AMI, CVA or VTE this stay] Coding Level of Care Code Acute Code for Chg Fwd Diagnoses Hypernatremia E87.0 UTI (urinary tract infection) N39.0 SSS (sick sinus syndrome) I49.5 SBO (small bowel obstruction) K56.609 Constipation K59.00 Hypomagnesemia E83.42 Pneumonia J18.9 Dementia F03.C0 Dementia behavioral or psychological symptom: unspecified whether behavioral, psychotic, or mood disturbance or anxiety Dementia severity: severe Dementia type: unspecified type Asymptomatic bradycardia R00.1 Leg swelling M79.89 Bedridden Z74.01 History of Whipple procedure Z90.410; Z90.49 Acute alteration in mental status R41.82 Acute hypokalemia E87.6
--- NOTE | 2023-04-23 10:24 | PC.SOCIAL ---
TCM message sent to [facility] to arrange follow up.
[2023-04-23 15:09] LABS: Lyme AB Screen <0.90 index
[2023-04-26 16:14] LABS: E. Chaffeensis AB IGG <1:64; E. Chaffeensis AB IGM <1:20
[2023-04-28 17:04] LABS: RMSF IGG NOT DETECTED; RMSF IGM NOT DETECTED
[2023-04-29 17:48] LABS: Acetylcholine Recept Modulatin 18
[2023-04-29 18:15] LABS: Acetylcholine Receptor Block <15 (<15)
== END 2023-04-22 17:48 | disposition home health service (06) | DRG 193 ==
LOC: ER 22:58 → MEDSURG 04-18 00:17 → CSU 04-18 01:26
PROVIDERS: Admitting Provider Internal Medicine; Emergency Provider Emergency Medicine; Visit Provider Internal Medicine
DX: J18.9 Pneumonia, unspecified organism (principal); G93.41 Metabolic encephalopathy; E87.0 Hyperosmolality and hypernatremia; K56.609 Unspecified intestinal obstruction, unspecified as to partial versus complete obstruction; N39.0 Urinary tract infection, site not specified; E46 Unspecified protein-calorie malnutrition; Z68.1 Body mass index [BMI] 19.9 or less, adult; I50.32 Chronic diastolic (congestive) heart failure; E86.0 Dehydration; G31.83 Neurocognitive disorder with Lewy bodies; F02.C0 Dementia in other diseases classified elsewhere, severe, without behavioral disturbance, psychotic disturbance, mood disturbance, and anxiety; Z74.01 Bed confinement status; I49.5 Sick sinus syndrome; Z66 Do not resuscitate; Z90.411 Acquired partial absence of pancreas; E87.6 Hypokalemia; I11.0 Hypertensive heart disease with heart failure; Z91.81 History of falling; K29.70 Gastritis, unspecified, without bleeding; I69.993 Ataxia following unspecified cerebrovascular disease
CPT/HCPCS: 36415; 36416; 36600; 51702; 70450; 70551; 71045; 71275; 74176; 80048; 80051; 80053; 81001; 82330; 82805; 82962; 83516; 83519; 83735; 84100; 84146; 84443; 84484; 85025; 85378; 86618; 86666; 86757; 87040; 87077; 87086; 87186; 92523; 92610; 93005; 93306; 96365; 96366; 96367; 96372; 97110; 97161; 97163; 97167; 97530; 97535; 99291; J0360; J0696; J1644; J2543; J3475; J3480; J7030; J7799; P9046; Q9967